=== PATIENT | male | born 1985 | race Caucasian/White ===

== ENCOUNTER 2017-03-02 00:21 | Emergency (ER) | payer BC | END 2017-03-02 01:16 | disposition home or self-care (01) | LOC: D.ER 00:21 | DX: J06.9 Acute upper respiratory infection, unspecified (principal); M54.5 Low back pain; F17.200 Nicotine dependence, unspecified, uncomplicated ==

== ENCOUNTER 2017-05-29 08:07 | Emergency (ER) | payer BC | END 2017-05-29 08:54 | disposition home or self-care (01) | LOC: D.ER 08:07 | DX: J02.9 Acute pharyngitis, unspecified (principal); F17.200 Nicotine dependence, unspecified, uncomplicated; R05 Cough ==